=== PATIENT | male | born 1995 | race Caucasian/White ===

== ENCOUNTER 2020-05-03 18:51 | Emergency (ER) | payer SELFPAY ==
[2020-05-03] MEDS ORDERED: CEFAZOLIN 1 GM VIAL ONE (19:02)
[2020-05-03] MEDS ORDERED: Ketorolac Tromethamine 30 MG/ML VIAL ONE (20:07)
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
== END 2020-05-03 20:22 | disposition home or self-care (01) ==
LOC: ERS 18:51
DX: S81.842A Puncture wound with foreign body, left lower leg, initial encounter (principal); W32.0XXA Accidental handgun discharge, initial encounter
CPT/HCPCS: 96365; 96375; G0390; J0690; J1885